=== PATIENT | female | born 1960 | race Two or more races ===

== ENCOUNTER 2018-11-30 09:03 | Inpatient (IN) | payer MEDICAID, OTHER ==
[~2018-11-30] VITALS: Ht 152.4 cm; Wt 60.0 kg
[2018-11-30] MEDS ORDERED: DILTIAZEM HCL 5MG/ML 5ML VIAL IV ONE (09:45)
[2018-11-30 10:01] LABS: BASOPHILS % 0.8 % (0.0-2.0); EOSINOPHILS % 1.4 % (0.0-5.0); HEMATOCRIT. 37.9 % (42.0-52.0); HEMOGLOBIN. 12.3 g/dL (14.0-18.0); LYMPHOCYTES % 22.3 % (20.0-50.0); MEAN CORPUSCULAR HEMOGLOBIN 27.9 pg (28.0-32.0); MEAN CORPUSCULAR VOLUME 85.5 fL (80.0-94.0); MEAN PLATELET VOLUME 8.1 fl (7.4-10.4); MONOCYTES % 6.1 % (2.0-8.0); NEUTROPHILS % 69.4 % (40.0-76.0); PLATELET 237 x1000/uL (130-400); RED BLOOD CELL COUNT 4.43 mill/uL (4.7-6.1)
[2018-11-30 10:08] LABS: CHLORIDE 109 mEq/L (98-107)
[2018-11-30] MEDS ORDERED: DILTIAZEM HCL 60MG TABLET PO ONE (10:30)
[2018-11-30] MEDS ORDERED: ENOXAPARIN 60MG/0.6ML SYR SUBCUT ONE (11:30)
[2018-11-30] MEDS ORDERED: IPRATROPIUM/ALBUTEROL 0.5-3(2.5)MG/3ML NEB INH PRN (11:45)
[2018-11-30] MEDS ORDERED: MAGNESIUM/ALUMINUM HYDROXIDE/SIMETHICONE 30ML UDC PO PRN (11:45)
[2018-11-30] MEDS ORDERED: DOCUSATE SODIUM 100MG CAPSULE PO PRN (11:45)
[2018-11-30] MEDS ORDERED: HYDROCODONE/ACETAMINOPHEN 5/325MG TABLET PO PRN (11:45)
[2018-11-30] MEDS ORDERED: CLONIDINE 0.1MG TABLET PO PRN (11:45)
[2018-11-30] MEDS ORDERED: ONDANSETRON HCL 4MG/2ML INJ IV PRN (11:45)
[2018-11-30] MEDS ORDERED: GUAIFENESIN 200MG/10ML SUGAR FREE UDC PO PRN (11:45)
[2018-11-30] MEDS ORDERED: LORAZEPAM 2MG/ML CPJ IV PRN (11:45)
[2018-11-30] MEDS ORDERED: DIPHENHYDRAMINE 50MG/ML VIAL IV PRN (11:45)
[2018-11-30] MEDS ORDERED: HYDROMORPHONE HCL/PF 2MG/ML CPJ IV PRN (11:45)
[2018-11-30] MEDS ORDERED: ACETAMINOPHEN 325MG TABLET PO PRN (11:45)
[2018-11-30] MEDS ORDERED: NA PHOS,M-B/NA PHOS,DI-BA ENEMA 118ML PR PRN (11:45)
[2018-11-30] MEDS ORDERED: ENOXAPARIN 40MG/0.4ML SYR SUBCUT SCH (11:45)
[2018-11-30 12:00] VITALS: BP 134/74
[2018-11-30 13:00] VITALS: BP 134/74
[2018-11-30] MEDS: ASPIRIN 81MG EC TABLET PO SCH (13:18)
[2018-11-30 13:28] LABS: CHLORIDE 111 mEq/L (98-107)
[2018-11-30] MEDS ORDERED: POTASSIUM CHLORIDE 20MEQ TABLET SR PO SCH (14:00)
[2018-11-30] MEDS ORDERED: DILTIAZEM HCL 5MG/ML 5ML VIAL IV PRN (15:00)
[2018-11-30 16:00] VITALS: BP 122/65
[2018-11-30 17:15] LABS: INR 1.1; PROTHROMBIN TIME 10.7 sec (9.1-11.1)
[2018-11-30] MEDS: DILTIAZEM HCL 60MG TABLET PO SCH ×2 (17:43→21:41)
[2018-11-30 20:00] VITALS: BP 115/75
[2018-11-30] MEDS ORDERED: AMLO5TAB88 PO (21:25)
[2018-11-30] MEDS ORDERED: LISI-186 PO (21:25)
[2018-11-30] MEDS ORDERED: HYDR-4001 MT (21:25)
[2018-11-30] MEDS ORDERED: METO-385 PO (21:25)
[2018-11-30] MEDS ORDERED: DOCU-150 PO (21:25)
[2018-11-30] MEDS ORDERED: FAMO20TA8 PO (21:25)
[2018-11-30] MEDS ORDERED: ATOR10TA69 PO (21:25)
[2018-11-30] MEDS ORDERED: ASPI-1158 PO (21:25)
[2018-11-30] MEDS: ENOXAPARIN 60MG/0.6ML SYR SUBCUT SCH (21:41)
[2018-12-01] VITALS (8 sets, daily range): BP systolic 100–138; BP diastolic 49–72
[2018-12-01] MEDS: DILTIAZEM HCL 60MG TABLET PO SCH ×3 (05:53→21:21)
[2018-12-01 07:14] LABS: BASOPHILS % 1.3 % (0.0-2.0); EOSINOPHILS % 2.3 % (0.0-5.0); HEMATOCRIT. 31.6 % (36.0-48.0); HEMOGLOBIN. 10.6 g/dL (12.0-16.0); LYMPHOCYTES % 33.9 % (20.0-50.0); MEAN CORPUSCULAR HEMOGLOBIN 28.3 pg (28.0-32.0); MEAN CORPUSCULAR VOLUME 84.3 fL (81.0-99.0); MEAN PLATELET VOLUME 8.5 fl (7.4-10.4); MONOCYTES % 8.4 % (2.0-8.0); NEUTROPHILS % 54.1 % (40.0-76.0); PLATELET 209 x1000/uL (130-400); RED BLOOD CELL COUNT 3.75 mill/uL (4.2-5.4); RED CELL DISTRIBUTION WIDTH 14.9 % (11.6-14.6)
[2018-12-01 08:11] LABS: CHLORIDE 112 mEq/L (98-107)
[2018-12-01 08:28] LABS: LDL CHOLESTEROL 107 mg/dL (5-100)
[2018-12-01 08:29] LABS: HDL CHOLESTEROL 29 mg/dL (40-59); T4 FREE 1.08 ng/dL (0.76-1.46)
[2018-12-01] MEDS ORDERED: ENOXAPARIN 40MG/0.4ML SYR SUBCUT SCH (09:00)
[2018-12-01] MEDS: ASPIRIN 81MG EC TABLET PO SCH (09:33)
[2018-12-01] MEDS: METOPROLOL TARTRATE 25MG TABLET PO SCH ×2 (09:36→21:20)
[2018-12-01] MEDS: ENOXAPARIN 60MG/0.6ML SYR SUBCUT SCH (09:37)
[2018-12-01] MEDS ORDERED: ATORVASTATIN CALCIUM 10MG TABLET PO SCH (21:00)
== END 2018-12-01 23:25 | disposition short-term general hospital (02) | DRG 201 ==
LOC: EDSEX 09:03 → ER 09:03 → 5WST 11:25 → EDBEDREQTM 11:27 → EDBEDREQ 11:27 → ENRESERV 11:29
PROVIDERS: ADMIT Internal Medicine; ATTEND Internal Medicine
DX: I48.91 Unspecified atrial fibrillation (principal); I11.0 Hypertensive heart disease with heart failure; I50.9 Heart failure, unspecified; Z95.2 Presence of prosthetic heart valve; E78.00 Pure hypercholesterolemia, unspecified; I48.3 Typical atrial flutter; I35.0 Nonrheumatic aortic (valve) stenosis; K21.9 Gastro-esophageal reflux disease without esophagitis; I25.10 Atherosclerotic heart disease of native coronary artery without angina pectoris; Z79.82 Long term (current) use of aspirin
CPT/HCPCS: 36415; 71045; 80048; 80061; 83735; 83880; 84439; 84443; 84484; 93005; 93306; 96374; 99291; J1650; J3490